=== PATIENT | female | born 1945 | race Asian ===

== ENCOUNTER 2019-04-20 08:56 | Day surgery (SDC) | payer OTHER ==
[2019-04-14 17:23] VITALS: BMI 29.0
[~2019-04-20 08:56] MED LIST: CYCLOPENTOLATE HCL 1% OPHTH SOLN 2 ML BOTTLE OS SCH; KETOROLAC TROMETHAMINE 0.5% EYE DROP 1 DROP DROPS OS SCH; OFLOXACIN 0.3% OPHTHALMIC SOLUTION 5 ML BOTTLE OS SCH; PHENYLEPHRINE 2.5% OPHTH SOLN 15 ML BOTTLE OS SCH; TROPICAMIDE 1% OPHTH SOLN 15 ML BOTTLE OS SCH
[2019-04-20] MEDS: KETOROLAC TROMETHAMINE 0.5% EYE DROP 1 DROP DROPS ONE ×5 (10:05→10:25)
[2019-04-20] MEDS: OFLOXACIN 0.3% OPHTHALMIC SOLUTION 5 ML BOTTLE ONE ×5 (10:05→10:25)
[2019-04-20] MEDS: TROPICAMIDE 1% OPHTH SOLN 15 ML BOTTLE ONE ×5 (10:05→10:25)
[2019-04-20] MEDS: CYCLOPENTOLATE HCL 1% OPHTH SOLN 2 ML BOTTLE ONE ×5 (10:05→10:25)
[2019-04-20] MEDS: PHENYLEPHRINE 2.5% OPHTH SOLN 15 ML BOTTLE ONE ×5 (10:05→10:25)
[2019-04-20] MEDS ORDERED: POVIDONE-IODINE 5% OPHTHALMIC PREP 30 ML SOLUTION ONE (11:11)
[2019-04-20] MEDS ORDERED: BACITRACIN/POLYMYXIN OPH OINT 3.5 GM TUBE ONE (11:11)
[2019-04-20] MEDS ORDERED: TRYPAN BLUE 0.5 ML DISP.SYRIN ONE (11:11)
[2019-04-20] MEDS ORDERED: EPI-SHUGARCAINE (EPINEPHRINE 0.025% & LIDOCAINE-PF 0.75%) 4ML ONE (11:11)
[2019-04-20] MEDS ORDERED: NEO/POLYMYX B SULF/DEXAMETH OPHTHALMIC 5ML BOTTLE ONE (11:11)
[2019-04-20] MEDS ORDERED: BETAXOLOL HCL 0.25% OPHTHALMIC 10 ML DROPSBTL ONE (11:11)
[2019-04-20] MEDS ORDERED: MIDAZOLAM HCL 2 MG/2 ML SINGLE DOSE VIAL ONE (11:21)
[2019-04-20] MEDS ORDERED: KETOROLAC TROMETHAMINE 0.5% EYE DROP 1 DROP DROPS OS SCH (11:30)
[2019-04-20] MEDS ORDERED: PHENYLEPHRINE 2.5% OPHTH SOLN 15 ML BOTTLE OS SCH (11:30)
[2019-04-20] MEDS ORDERED: OFLOXACIN 0.3% OPHTHALMIC SOLUTION 5 ML BOTTLE OS SCH (11:30)
[2019-04-20] MEDS ORDERED: TROPICAMIDE 1% OPHTH SOLN 15 ML BOTTLE OS SCH (11:30)
[2019-04-20] MEDS ORDERED: CYCLOPENTOLATE HCL 1% OPHTH SOLN 2 ML BOTTLE OS SCH (11:30)
[2019-04-20] MEDS ORDERED: ACETAMINOPHEN 325 MG TABLET (FP) PO PRN (12:10)
[2019-04-20 12:36] VITALS: TEMP 98.5
[2019-04-20 13:04] VITALS: BP 133/65; PULSE 68
--- NOTE | 2019-04-20 23:24 | OP ---
DATE OF OPERATION: 04/20/2019 PREOPERATIVE DIAGNOSIS: Cataract, hypermature, left eye. POSTOPERATIVE DIAGNOSIS: Cataract, hypermature, left eye. PROCEDURE: Cataract extraction via phacoemulsification with insertion posterior chamber lens implant, left eye, use of Trypan blue, left eye. SURGEON: Oscar Childs MD. CABLE LAYER: Yamile Shepherd MD. ANESTHESIA: Topical with sedation. ESTIMATED BLOOD LOSS: Less than 1 mL. COMPLICATIONS: None. SPECIMENS: None. PROCEDURE: The patient is identified in the holding area after all risks, benefits, and alternatives were explained to the patient, informed consent was obtained. The left eye was marked with a marking pen. The patient then entered the operating room on an eye stretcher. After formal timeout was performed, topical tetracaine eyedrops were instilled onto the left eye. The left eye was then prepped and draped in the usual sterile fashion. Eyelid speculum was placed beneath the eyelids of the left eye. An infratemporal paracentesis incision was created using 15-degree blade. Topical preservative-free epinephrine and preservative-free lidocaine was injected into the anterior chamber. Air bubble was then injected into the anterior chamber. Trypan blue was then injected underneath the air bubble to stain the anterior capsule. Then balanced salt solution was used to wash excess Trypan blue and air bubble out of the eye. Viscoelastic was then used to reform the anterior chamber. A 2.4-mm keratome blade was then used to make a supratemporal incision. A 360-degree continuous curvilinear capsulorrhexis was then created using bent cystotome and Utrata forceps. Hydrodissection was performed using balanced saline solution on the cannula. Phacoemulsification was then introduced, disassembled and removed the nucleus in its entirety. Irrigation/aspiration was then used to remove any remaining cortical material from the eye. The capsular bag was reformed using viscoelastic. An Hira model [id number] with a power of 22.0 diopters, serial number [id number] was inspected and found to be defect free and injected into the capsular bag. Irrigation/aspiration was then used to remove any remaining viscoelastic from the eye. All wounds were hydrated with balanced saline solution and noted to be watertight. There was a red reflex present. The anterior chamber was deep. The lens was perfectly centered in the capsular bag, and the eye had adequate pressure. Then topical antibiotic eyedrops and antibiotic ointment was then administered to the left eye. The eyelid speculum was then removed from the left eye. The left eye was shielded. The patient tolerated the procedure well and left the operating room in stable condition to follow up in the eye clinic the next morning at 10 o'clock. OSCAR CHILDS M.D. [id number]
--- NOTE | 2019-04-22 15:16 | EKG ---
Test Reason : Blood Pressure : / mmHG Vent. Rate : 073 BPM Atrial Rate : 073 BPM P-R Int : 184 ms QRS Dur : 084 ms QT Int : 406 ms P-R-T Axes : 067 029 021 degrees QTc Int : 447 ms NORMAL SINUS RHYTHM POSSIBLE LEFT ATRIAL ENLARGEMENT BORDERLINE ECG NO PREVIOUS ECGS AVAILABLE Confirmed by CARIDAD SALOMON, JEWEL ([id number]) on 04/22/2019 3:16:29 PM Referred By: Oscar Anton Confirmed By:JEWEL MCLEAN MD
== END 2019-04-20 12:50 | disposition home or self-care (01) ==
LOC: FASU 08:56
PROVIDERS: ATTEND Ophthalmology
PROC: 08RK3JZ Replacement of Left Lens with Synthetic Substitute, Percutaneous Approach (ICD-10-PCS; principal; 2019-04-20 11:37)
DX: H26.9 Unspecified cataract (principal)
CPT/HCPCS: 93005

== ENCOUNTER 2019-04-27 08:27 | Day surgery (SDC) | payer OTHER ==
[2019-04-15 16:46] VITALS: BMI 29.0
[2019-04-27] MEDS: PHENYLEPHRINE 2.5% OPHTH SOLN 15 ML BOTTLE OD SCH ×5 (08:50→09:10)
[2019-04-27] MEDS: TROPICAMIDE 1% OPHTH SOLN 15 ML BOTTLE OD SCH ×5 (08:50→09:10)
[2019-04-27] MEDS: KETOROLAC TROMETHAMINE 0.5% EYE DROP 1 DROP DROPS OD SCH ×5 (08:50→09:10)
[2019-04-27] MEDS: CYCLOPENTOLATE HCL 1% OPHTH SOLN 2 ML BOTTLE OD SCH ×5 (08:50→09:10)
[2019-04-27] MEDS: OFLOXACIN 0.3% OPHTHALMIC SOLUTION 5 ML BOTTLE OD SCH ×5 (08:50→09:10)
[2019-04-27] MEDS ORDERED: TROPICAMIDE 1% OPHTH SOLN 15 ML BOTTLE ONE (09:16)
[2019-04-27] MEDS ORDERED: OFLOXACIN 0.3% OPHTHALMIC SOLUTION 5 ML BOTTLE ONE (09:16)
[2019-04-27] MEDS ORDERED: KETOROLAC TROMETHAMINE 0.5% EYE DROP 1 DROP DROPS ONE (09:16)
[2019-04-27] MEDS ORDERED: CYCLOPENTOLATE HCL 1% OPHTH SOLN 2 ML BOTTLE ONE (09:16)
[2019-04-27] MEDS ORDERED: PHENYLEPHRINE 2.5% OPHTH SOLN 15 ML BOTTLE ONE (09:16)
[2019-04-27] MEDS ORDERED: BACITRACIN/POLYMYXIN OPH OINT 3.5 GM TUBE ONE (10:01)
[2019-04-27] MEDS ORDERED: NEO/POLYMYX B SULF/DEXAMETH OPHTHALMIC 5ML BOTTLE ONE (10:02)
[2019-04-27] MEDS ORDERED: EPI-SHUGARCAINE (EPINEPHRINE 0.025% & LIDOCAINE-PF 0.75%) 4ML ONE (10:02)
[2019-04-27] MEDS ORDERED: TETRACAINE 0.5% OPHTH SOLN 2 ML BOTTLE ONE (10:02)
[2019-04-27] MEDS ORDERED: BETAXOLOL HCL 0.25% OPHTHALMIC 10 ML DROPSBTL ONE (10:02)
[2019-04-27] MEDS ORDERED: POVIDONE-IODINE 5% OPHTHALMIC PREP 30 ML SOLUTION ONE (10:02)
[2019-04-27] MEDS ORDERED: TRYPAN BLUE 0.5 ML DISP.SYRIN ONE (10:16)
[2019-04-27] MEDS ORDERED: MIDAZOLAM HCL 2 MG/2 ML SINGLE DOSE VIAL ONE (10:18)
[2019-04-27 11:34] VITALS: TEMP 98.6
[2019-04-27 12:01] VITALS: BP 111/67; PULSE 69
--- NOTE | 2019-04-27 12:32 | OP ---
DATE OF OPERATION: 04/27/2019 PREOPERATIVE DIAGNOSIS: Cataract, right eye, hypermature. POSTOPERATIVE DIAGNOSIS: Cataract, hypermature, right eye. PROCEDURE: Cataract extraction via phacoemulsification with insertion of posterior chamber lens implant, right eye, use of trypan blue. ANESTHESIA: Topical with sedation. ESTIMATED BLOOD LOSS: Less than 1 mL. SURGEON: Oscar Childs MD INDUSTRIAL/ORGANIZATIONAL PSYCHOLOGIST: Yamile Shepherd MD COMPLICATIONS: None. SPECIMENS: None. DESCRIPTION OF PROCEDURE: The patient was identified in the holding area. After all risks, benefits, and alternatives were explained to the patient, informed consent was obtained. The right eye was marked with a marking pen. The patient then entered the operating room on an eye stretcher. After a formal time-out was performed, topical tetracaine eye drops were instilled onto the right eye. The right eye was then prepped and draped in the usual sterile fashion. An eyelid speculum was placed beneath the eyelid of the right eye. A superotemporal paracentesis incision was created using a 15-degree blade. Topical preservative-free epinephrine and preservative-free lidocaine were then injected into the anterior chamber. An air bubble was then injected into the anterior chamber. Trypan blue was then injected into the anterior chamber below the air bubble to stain the anterior capsule. Balanced saline solution was then used to wash the excess air bubble and trypan blue out of the eye. Viscoelastic was then placed into the anterior chamber. A 2.4-mm keratome blade was then used to make an infratemporal incision. A 360-degree continuous curvilinear capsulorrhexis was then created using bent cystotome and Utrata forceps. Hydrodissection was performed using balanced saline solution on a cannula. Phacoemulsification was introduced to disassemble and remove the nucleus in its entirety. Irrigation/aspiration was then used to remove any remaining cortical material from the eye. The capsular bag was reformed using viscoelastic. An Hira Model [id number] with a power of 22.0 diopter serial number [id number] was inspected and found to be defect free and injected into the capsular bag. Irrigation/aspiration was then used to remove any remaining viscoelastic from the eye. Then all wounds were hydrated with balanced saline solution. It was noted that the main wound was still leaking; therefore, interrupted 10-0 nylon suture was placed with the knot buried. It was confirmed that all wounds were dry without leaking. Therefore, there was a red reflex present. The anterior chamber was deep. The eye had an adequate pressure, and the lens was perfectly centered in the capsular bag. Topical antibiotic eyedrops and ointment were then administered to the right eye. The eyelid speculum was removed from the right eye. The right eye was shielded. The patient tolerated the procedure well. Left the operating room in stable condition to follow up in the eye clinic tomorrow morning at 10 o'clock. OSCAR CHILDS M.D. [id number]
[2019-04-27] MEDS ORDERED: ACETAMINOPHEN 325 MG TABLET (FP) PO PRN (12:37)
== END 2019-04-27 12:05 | disposition home or self-care (01) ==
LOC: FASU 08:27
PROVIDERS: ATTEND Ophthalmology
PROC: 08RJ3JZ Replacement of Right Lens with Synthetic Substitute, Percutaneous Approach (ICD-10-PCS; principal; 2019-04-27 10:37)
DX: H26.9 Unspecified cataract (principal)